=== PATIENT | female | born 1930 | race Caucasian/White ===

== ENCOUNTER 2019-06-24 22:07 | Emergency (ER) | payer OTHER, BC ==
[~2019-06-24] VITALS: Ht 149.9 cm; Wt 51.8 kg
[~2019-06-24 22:07] MED LIST: ALENDRONATE SOD70 M2 PO; ANTIVERT/2525 MG PO; ATENOLOL25 MG PO; BETIMOL5 M1 OS; ENALAPRIL/HCTZ1 TAB PO; FOLIC ACID1 MG PO; LOW DOSE ASPIRI81 MG PO; METHOTREXATE2.5 M2 PO; NASONEX0.05 MG/Ac; PAZEO2.5 ML OP; PREDNISONE2.5 MG PO; SIMVASTATIN40 M1 PO
[2019-06-24 22:18] VITALS: Ht 149.9 cm; Wt 51.8 kg
[2019-06-25 00:05] VITALS: BP 155/45
== END 2019-06-25 00:05 | disposition home or self-care (01) ==
LOC: ED 22:07
DX: I10 Essential (primary) hypertension (principal); M19.90 Unspecified osteoarthritis, unspecified site; Z88.0 Allergy status to penicillin